=== PATIENT | male | born 1980 | race Caucasian/White ===

== ENCOUNTER 2018-10-26 13:10 | Outpatient (CLI) | payer BC ==
--- NOTE | 2018-10-26 13:45 | CT ---
EXAM: Brain CT without contrast: HISTORY: New daily persistent headache COMPARISON: None FINDINGS: No focal mass or midline shift. No intra or extra-axial hemorrhage. Sinus mucosal disease with marked mucosal changes in the right maxillary sinus. The mastoids are wallace r. IMPRESSION: No mass or bleed or other significant acute intracranial process. Prominent right maxillary sinus mucosal disease.
== END 2018-10-26 13:11 | disposition home or self-care (01) ==
LOC: SCSCT 13:10
PROVIDERS: ATTEND Family Medicine
DX: G44.52 New daily persistent headache (NDPH) (principal); J32.0 Chronic maxillary sinusitis
CPT/HCPCS: 70450